=== PATIENT | male | born 1965 | race Caucasian/White ===

== ENCOUNTER 2018-03-27 21:54 | Emergency (ER) | payer BC ==
[2018-03-27 22:06] VITALS: TEMP 98
[2018-03-27] MEDS ORDERED: DIPH,PERTUS(ACELL)TETVAC-LF 0.5 ML VIAL IM ONE (22:21)
[2018-03-27] MEDS ORDERED: CEPHALEXIN 500MG STARTER PACK 4 CAP BTL PO STA (23:29)
--- NOTE | 2018-03-27 23:29 | ED ---
Wound/Laceration HPI - General Chief Complaint: Wound/Laceration Stated Complaint: rt baby finger lac Time Seen by Provider: 03/27/18 22:16 Source: patient Mode of arrival: ambulatory Limitations: no limitations - History of Present Illness Initial Comments: 52-year-old male patient presents to the emergency department today for evaluation of laceration to the right fifth finger. Patient states that at approximately 10 AM he was working in the yard when he tripped and fell slicing his hand on a metal trailer. Patient states that he applied Steri-Strips and continued to work. Patient comes in for evaluation because the wound continues to bleed and the laceration is wide. He is unsure when his last tetanus vaccine was given. He denies any difficulty with range of motion. Denies any numbness or tingling to the finger. Denies hitting his head or losing consciousness during the fall. Denies any other injuries. Patient denies any headache, neck pain, back pain, chest pain, shortness of breath, dizziness, weakness, abdominal pain, nausea, vomiting, or difficulties with bowel movements or urination. - Related Data Previous Rx's Medication Instructions Recorded Cephalexin [Keflex] 500 mg PO Q6H #28 cap 03/27/18 Ibuprofen [Motrin] 600 mg PO Q8HR PRN #30 tab 03/27/18 Allergies Allergy/AdvReac Type Severity Reaction Status Date / Time No Known Allergies Allergy Verified 03/27/18 22:30 Review of Systems ROS Statement: Those systems with pertinent positive or pertinent negative responses have been documented in the HPI. ROS Other: All systems not noted in ROS Statement are negative. Past Medical History Past Medical History: Thyroid Disorder History of Any Multi-Drug Resistant Organisms: None Reported Past Surgical History: Orthopedic Surgery Additional Past Surgical History / Comment(s): back sx Past Psychological History: No Psychological Hx Reported Smoking Status: Never smoker Past Alcohol Use History: Rare Past Drug Use History: None Reported General Exam Limitations: no limitations, physical limitation (Hearing impaired) General appearance: alert, in no apparent distress, other (This is a well- developed, well-nourished adult male patient in no acute distress. Vital signs upon presentation are temperature 98.0F, pulse 50, respirations 20, blood pressure 132/65, pulse ox 97% on room air.) Head exam: Present: atraumatic, normocephalic, normal inspection Eye exam: Present: normal appearance, PERRL, EOMI. Absent: scleral icterus, conjunctival injection, periorbital swelling ENT exam: Present: normal exam, normal oropharynx, mucous membranes moist Neck exam: Present: normal inspection, full ROM, other (Nontender, no step-off, no deformity to firm midline palpation of the posterior cervical spine. Full range of motion without pain or limitation.). Absent: tenderness, meningismus, lymphadenopathy Respiratory exam: Present: normal lung sounds bilaterally. Absent: respiratory distress, wheezes, rales, rhonchi, stridor Cardiovascular Exam: Present: regular rate, normal rhythm, normal heart sounds. Absent: systolic murmur, diastolic murmur, rubs, gallop, clicks Extremities exam: Present: full ROM, normal capillary refill, other (Patient has a 6 cm laceration to the palmar aspect of the right little finger. Laceration does involve the flexor surface of the PIP joint. Bleeding is controlled. Patient has good strength in the pinky. He is able to demonstrate flexion and extension against resistance. Distal sensation is intact. Cap refills less than 3 seconds. Remainder of skin is pink, warm, and dry. Radial pulses 2+ and equal bilaterally.). Absent: normal inspection, tenderness, pedal edema, joint swelling, calf tenderness Back exam: Present: normal inspection. Absent: vertebral tenderness Neurological exam: Present: alert, oriented X3, CN II-XII intact Psychiatric exam: Present: normal affect, normal mood Skin exam: Present: warm, dry, intact, normal color. Absent: rash Course Vital Signs 03/27/18 03/27/18 22:01 23:38 Temperature 98.0 F Pulse Rate 50 L 64 Respiratory 20 17 Rate Blood Pressure 132/65 131/75 O2 Sat by Pulse 97 99 Oximetry Procedures - Laceration Laceration #1 Consent Obtained: verbal consent Time Out Performed: Yes Indication: laceration Site: hand (Right little finger) Size (cm): 6 Description: irregular Depth: simple, single layer Anesthetic Used: lidocaine 1% Anesthesia Technique: nerve block Amount (mls): 8 Pre-repair: irrigated extensively Type of Sutures: nylon Size of Sutures: 4-0 Number of Sutures: 9 Technique: simple, interrupted Medical Decision Making - Medical Decision Making 52-year-old male patient presented to the emergency department today for evaluation of laceration to the right little finger. Physical examination did reveal 6 cm irregular laceration over the palmar aspect of the right little finger. Laceration does involve the flexor surface of the PIP joint. Laceration was repaired utilizing sutures. Prior to suture insertion we did soak the finger in an iodine solution and then extensive irrigation was performed with sterile water. Patient tolerated this procedure well. Patient was updated on his tetanus shot. I did discuss x-ray to rule out any fractures of the finger, patient states he does not feel it is broken and does not want an x-ray. Patient will be discharged home with prescription for Keflex since the wound was opened since 10 AM. He is instructed to follow-up with orthopedics for further evaluation of the wound and finger function. I did discuss possibility of poor healing and scar tissue formation limiting range of motion of the finger as the laceration does involve the skin over the joint. He is educated regarding wound care and signs or symptoms of infection. Return parameters discussed in detail. He verbalizes understanding and agrees with this plan. Disposition Clinical Impression: Finger laceration Disposition: HOME SELF-CARE Condition: Good Instructions: Care For Your Stitches (ED), Finger Laceration (ED) Additional Instructions: Keep wound clean and dry. Cleanse twice daily with warm water and antibacterial soap. Keep covered during work. Follow-up with hand surgeon for further evaluation of the wound, there could be poor healing and limited range of motion if you do not have proper follow up. Return to have stitches removed in 7 days. Monitor for signs or symptoms of infection including but not limited to redness, swelling, drainage of pus, fever, or chills. Complete antibiotic prescription in full. Return here immediately for any new, worsening, or concerning symptoms. Prescriptions: Cephalexin [Keflex] 500 mg PO Q6H #28 cap Ibuprofen [Motrin] 600 mg PO Q8HR PRN #30 tab PRN Reason: Pain Is patient prescribed a controlled substance at d/c from ED?: No Referrals: Anton Bryan DO [Primary Care Provider] - 1-2 days Destin Blair DO [Doctor of Osteopathic Medicine] - 1-2 days Time of Disposition: 23:29
[2018-03-27 23:40] VITALS: BP 131/75; PULSE 64; RESP 17
== END 2018-03-27 23:39 | disposition home or self-care (01) ==
LOC: EC 21:54
DX: S61.216A Laceration without foreign body of right little finger without damage to nail, initial encounter (principal); Z23 Encounter for immunization; W01.118A Fall on same level from slipping, tripping and stumbling with subsequent striking against other sharp object, initial encounter; Y93.89 Activity, other specified; Y92.007 Garden or yard of unspecified non-institutional (private) residence as the place of occurrence of the external cause
CPT/HCPCS: 12002; 90471; 90715; 99282

== ENCOUNTER 2022-01-23 06:25 | Day surgery (SDC) | payer BC ==
[2022-01-20 13:01] VITALS: BMI 28.5
[~2022-01-23 06:25] MED LIST: Pre Op ABX Message 1 EACH MISC MISCELLANE ONE
[2022-01-23] MEDS ORDERED: LACTATED RINGERS 1,000 ML IV SCH (06:39)
[2022-01-23] MEDS ORDERED: MIDAZOLAM 2 MG/2 ML VIAL IV PRN (06:39)
[2022-01-23] MEDS ORDERED: DEXAMETHASONE SOD PHOSPHATE 4 MG/ML 1 ML VIAL IV ONE (06:39)
[2022-01-23] MEDS ORDERED: ONDANSETRON 4 MG/2 ML VIAL IVP ONE (06:39)
[2022-01-23] MEDS ORDERED: SCOPOLAMINE 1 MG/72 HR PATCH TRANSDERM ONE (06:39)
[2022-01-23] MEDS ORDERED: HYDROmorphone 0.5 MG/0.5 ML SYRINGE IVP PRN (07:00)
[2022-01-23 14:58] VITALS: TEMP 98
[2022-01-23] MEDS ORDERED: LIDOCAINE 0.5%-EPI 1:200,000 50 ML VIAL SQ ONE ×2 (18:18)
[2022-01-23] MEDS ORDERED: ROPIVACAINE 5 MG/ML 30 ML VIAL MISCELLANE ONE ×2 (18:18)
[2022-01-23] MEDS ORDERED: SODIUM CHLORIDE 0.9% 50 ML with ceFAZolin 2,000 MG IV ONE ×2 (19:27)
[2022-01-23] MEDS ORDERED: GABAPENTIN 300 MG CAP PO STA (20:45)
[2022-01-23 20:46] VITALS: PULSE 71; RESP 16
[2022-01-23] MEDS ORDERED: HYDROcodone/APAP 5-325MG 1 EACH TAB PO STA (20:46)
[2022-01-23] MEDS ORDERED: KETOROLAC 15 MG/ML 1 ML VIAL IVP STA (20:46)
[2022-01-23 21:01] VITALS: BP 146/88
--- NOTE | 2022-02-06 17:25 | P.OP ---
Date of Procedure: 01/23/22 Preoperative Diagnosis: 1. Left forearm laceration 2. Left superficial radial nerve laceration Postoperative Diagnosis: 1. Left ECRB laceration 2. Left ECRL laceration 3. Left EPB laceration 4. Left APL laceration 5. Left superficial radial nerve laceration Procedure(s) Performed: 1. Left ECRB tendon repair 2. Left ECRL tendon repair 3. Left brachioradialis tendon repair 4. Left EPB tendon repair with interpositional graft 5. Left superficial radial nerve repair, with nerve allograft 6. Left forearm irrigation and debridement, to level of bone Implants: Axogen 3mm allograft, Axogen 3mm nerve conduit Anesthesia: local Surgeon: Jaylin Fabian Integrated Log[employer] Operations Manager #1: Radha Lindsay Estimated Blood Loss (ml): 10 Pathology: none sent Condition: stable Disposition: PACU Indications for Procedure: Vaughn is a 56 year old male who presented with a chainsaw injury to his left forearm. Patient was using a chainsaw when he tripped and fell on the saw. On evaluation in the office, he had ulnar deviation of his wrist and weak wrist extension and diminished sensation in the radial sensory nerve distribution. Decision was made to do an I&D and repair of tendons and nerves. Description of Procedure: The patient, operative extremity, and procedure was identified in the preop holding area. After informed consent was obtained, the patient received a local block with diluted 1%liocaine with epi and half percnt marcaine. He was then brought back to the operating room where the extremity was prepped and draped in normal sterile fashion. There were several lacerations on the dorsal aspect of the hand but since there were no signs of infection and EDC, EIP, and EDQM tendons were intact on testing, these were not disturbed. Tourniquet was inflated and the sutures from the forearm wound were removed and the wound was opened. The wound was followed down to bone. All infected or necrosis material was carefully debrided with a ray tech and ronguer. This was carried out to the level of the bone. Several lacerated tendons were identified in the wound about 3cm proximal to the dorsal wrist compartments. ECRL, ECRB, and brachioradialis were all found to be completely lacerated within the tendon. These were each primarily repaired with 3.0 fiberwire suture with several locking cruciate stitches. There was slight gapping on the ECRB repair with range of motion testing. All other repairs showed no gapping with gentle range of motion. APL and EPB tendons were identified distally but proximally, only EPB tendon was identified. APL was lacerated proximal to the musculotendinous junction and was irreparable. There was a significant gap between the two ends of the EPB tendon even with maximal extension of the thumb MP joint and wrist. The decision was then made to harvest the distal APL tendon as an intercalary graft for the EPB tendon. A counter incision was made at the level of the CMC joint at the juncture of the glabrous and nonglabrous skin. Dissection was carried down to EPB and APL tendons. APL was identified and the stump was pulled out of the wound. It was then released from it's insertion. There was about a 8 cm section that was harvested. This was then woven into the proximal EPB tendon in a pulvertaft fashion. It was then woven into the distal stump of EPB after the forearm incision was extended distally. Tension was set with the patient's thumb touching the index finger tip with wrist extension. The remainder of the graft was secured with several pulvertaft weaves and 4.0 fiberwire. Attention was then turned to the nerve. Both the medial and lateral branches were completely severed 2 cm past the branching point. Once the ends were trimmed to healthy fascicles there was a 2mm gap of the lateral branch and a 5mm gap of the medial branch. The lateral branch was repaired with a neural tube while the medial branch gap was spanned with 6mm of 3mm allograft. These were sutured in place with 8.0 nylon interrupted stitches without tension. The wrist and thumb was gently taken through range of motion and the repairs held without any tension. The tourniquet was then let down, hemostasis was achieved and the wound was closed in a layered fashion with 4.0 monocryl and 3.0 prolene and skin glue. Wound was dressed with adaptic, 4x4 gauze, cast padding, and a thumb spica splint was placed.
== END 2022-01-23 21:22 | disposition home or self-care (01) ==
LOC: OR 06:25
PROVIDERS: ATTEND Orthopaedic Surgery Hand Surgery
DX: S56.522A Laceration of other extensor muscle, fascia and tendon at forearm level, left arm, initial encounter (principal); S64.2 Injury of radial nerve at wrist and hand level; S51.812A Laceration without foreign body of left forearm, initial encounter; W29.3XXA Contact with powered garden and outdoor hand tools and machinery, initial encounter
CPT/HCPCS: 64912; 25270 ×2; 25260; 64910; 25310; 84132; C1713; J0690; J2795; J1885